=== PATIENT | female | born 1950 | race Caucasian/White ===

== ENCOUNTER 2024-04-11 00:04 | Inpatient (IN) ==
[2024-04-11] MEDS: 0.9 % SODIUM CHLORIDE 1,000 ML IV ONE (00:31)
[2024-04-11] MEDS: ONDANSETRON 4 MG/2 ML VIAL IV ONE (00:31)
[2024-04-11] MEDS: MECLIZINE 25 MG TABLET PO ONE (00:52)
[2024-04-11 00:57] LABS: Basophils # (Auto) 0.04 K/mcL (0.00-0.30); Basophils % (Auto) 0.9 % (0.0-2.0); Eosinophils # (Auto) 0.01 K/mcL (0.00-0.70); Eosinophils % (Auto) 0.2 % (0.0-7.0); Hematocrit 37.9 % (34.1-44.9); Hemoglobin 13.5 g/dL (11.2-15.7); Lymphocytes # (Auto) 0.88 K/mcL (1.50-4.80); Lymphocytes % (Auto) 20.7 % (15.5-49.0); Mean Cell Volume 82.4 fL (80.0-100.0); Mean Corpuscular HGB Conc 35.6 g/dL (31.0-36.0); Mean Platelet Volume 10.4 fL (8.8-12.5); Monocytes # (Auto) 0.82 K/mcL (0.10-0.90); Monocytes % (Auto) 19.3 % (1.0-12.0); Neutrophils % (Auto) 58.4 % (38.0-78.0); Platelet Count 191 K/mcL (140-440); Red Cell Distribution Width 15.3 % (11.5-14.5); WBC 4.3 K/mcL (4.5-11.0)
[2024-04-11 02:05] LABS: ALT/SGPT 32 U/L (<40); AST/SGOT 41 U/L (<32); Albumin 3.7 gm/dL (3.2-5.2); Albumin/Globulin Ratio 1.4 (1.0-2.3); Alkaline Phosphatase 84 U/L (39-117); Blood Urea Nitrogen 13 mg/dL (8-23); Calcium 8.4 mg/dL (8.6-10.4); Carbon Dioxide 18 mmol/L (22-30); Chloride 88 mmol/L (96-108); Globulin 2.6 gm/dL (2.2-3.7); Glomerular Filtration Rate 85; Glucose 105 mg/dL (70-105); Potassium 3.9 mmol/L (3.3-5.1); Sodium 120 mmol/L (133-145)
[2024-04-11] MEDS ORDERED: ACETAMINOPHEN 325 MG TABLET PO PRN (03:03)
[2024-04-11 03:09] LABS: Sodium 120 mmol/L (133-145)
[2024-04-11 04:18] LABS: Sodium, Urine Random 177 mmol/L
[2024-04-11 04:21] LABS: Osmolality,Urine 634 mOSM/kg (80-1000)
[2024-04-11] MEDS: ONDANSETRON 4 MG/2 ML VIAL IV PRN (05:18)
[2024-04-11] MEDS: 0.9 % SODIUM CHLORIDE 10 ML SYRINGE IV SCH (05:18)
[2024-04-11 06:00] LABS: Basophils # (Auto) 0.01 K/mcL (0.00-0.30); Basophils % (Auto) 0.3 % (0.0-2.0); Eosinophils # (Auto) 0 K/mcL (0.00-0.70); Eosinophils % (Auto) 0 % (0.0-7.0); Hematocrit 35.1 % (34.1-44.9); Hemoglobin 12.3 g/dL (11.2-15.7); Lymphocytes % (Auto) 11.7 % (15.5-49.0); Mean Cell Volume 84.2 fL (80.0-100.0); Mean Platelet Volume 10.1 fL (8.8-12.5); Monocytes # (Auto) 0.55 K/mcL (0.10-0.90); Monocytes % (Auto) 16.1 % (1.0-12.0); Neutrophils % (Auto) 71.3 % (38.0-78.0); Platelet Count 155 K/mcL (140-440); RBC 4.17 M/mcL (3.59-5.38); Red Cell Distribution Width 15.6 % (11.5-14.5); WBC 3.4 K/mcL (4.5-11.0)
[2024-04-11 06:18] LABS: Free T4 (Free Thyroxine) 0.75 ng/dL (0.93-1.70)
[2024-04-11 06:19] LABS: Thyroid Stimulating Hormone 2.63 uIU/mL (0.27-5.01)
[2024-04-11 06:24] LABS: ALT/SGPT 28 U/L (<40); AST/SGOT 35 U/L (<32); Albumin 3.4 gm/dL (3.2-5.2); Albumin/Globulin Ratio 1.5 (1.0-2.3); Alkaline Phosphatase 76 U/L (39-117); Bilirubin,Direct 0.4 mg/dL (<0.3); Bilirubin,Total 0.8 mg/dL (0.1-1.0); Blood Urea Nitrogen 12 mg/dL (8-23); Calcium 7.7 mg/dL (8.6-10.4); Carbon Dioxide 21 mmol/L (22-30); Chloride 88 mmol/L (96-108); Globulin 2.2 gm/dL (2.2-3.7); Glomerular Filtration Rate 89; Glucose 107 mg/dL (70-105); Lactate Dehydrogenase 191 U/L (135-225); Phosphorous 3.1 mg/dL (2.5-4.5); Potassium 4.1 mmol/L (3.3-5.1); Sodium 119 mmol/L (133-145); Triglycerides 48 mg/dL (<150); Uric Acid 3.2 mg/dL (2.5-8.0)
[2024-04-11] MEDS: ONDANSETRON 4 MG/2 ML VIAL ONE (06:30)
[2024-04-11] MEDS: MECLIZINE 25 MG TABLET PO PRN (06:45)
[2024-04-11] MEDS: PROCHLORPERAZINE 10 MG/2 ML VIAL IV PRN (07:53)
[2024-04-11] MEDS: SODIUM CHLORIDE 1 GM TABLET PO ONE (07:58)
[2024-04-11] MEDS: FUROSEMIDE 20 MG/2 ML VIAL IV SCH (08:04)
[2024-04-11] MEDS ORDERED: LEVOFLOXACIN 750 MG/150 ML BAG IV SCH (09:00)
[2024-04-11] MEDS: LEVOFLOXACIN 500 MG/100 ML BAG IV SCH (09:19)
[2024-04-11] MEDS: LEVOFLOXACIN 250 MG/50 ML BAG IV SCH (09:19)
[2024-04-11] MEDS: HEPARIN 5,000 UNIT/ML VIAL SQ SCH (09:20)
[2024-04-11] MEDS: IPRATROPIUM/ALBUTEROL 3 ML AMPUL.NEB NEB ONE (09:36)
[2024-04-11] MEDS: SODIUM CHLORIDE 3 % 100 ML IV ONE ×2 (11:01→17:39)
[2024-04-11] MEDS: SODIUM CHLORIDE 1 GM TABLET PO SCH ×2 (11:30→20:33)
[2024-04-11] MEDS: ALPRAZolam 0.5 MG TABLET PO PRN (11:36)
[2024-04-11 12:57] LABS: Sodium 119 mmol/L (133-145)
[2024-04-11] MEDS: URE NA PO SCH (20:33)
[2024-04-11] MEDS: DOCUSATE SODIUM 100 MG CAPSULE PO PRN (20:34)
[2024-04-11] MEDS: Progesterone Micronized 100 mg capsule PO SCH (20:41)
[2024-04-11] MEDS ORDERED: ALPRAZolam 0.5 MG TABLET PO SCH (21:00)
[2024-04-11 23:50] LABS: Sodium 124 mmol/L (133-145)
[2024-04-12 01:52] LABS: Sodium 125 mmol/L (133-145)
[2024-04-12 03:48] LABS: Sodium 126 mmol/L (133-145)
[2024-04-12 05:39] LABS: Basophils # (Auto) 0.01 K/mcL (0.00-0.30); Basophils % (Auto) 0.3 % (0.0-2.0); Eosinophils # (Auto) 0 K/mcL (0.00-0.70); Eosinophils % (Auto) 0 % (0.0-7.0); Hematocrit 39.1 % (34.1-44.9); Lymphocytes # (Auto) 0.68 K/mcL (1.50-4.80); Lymphocytes % (Auto) 21.5 % (15.5-49.0); Mean Corpuscular HGB Conc 35.8 g/dL (31.0-36.0); Mean Platelet Volume 10.3 fL (8.8-12.5); Monocytes # (Auto) 0.55 K/mcL (0.10-0.90); Monocytes % (Auto) 17.4 % (1.0-12.0); Neutrophils % (Auto) 60.5 % (38.0-78.0); Platelet Count 164 K/mcL (140-440); RBC 4.77 M/mcL (3.59-5.38); Red Cell Distribution Width 14.9 % (11.5-14.5); WBC 3.2 K/mcL (4.5-11.0)
[2024-04-12 05:56] LABS: ALT/SGPT 33 U/L (<40); AST/SGOT 46 U/L (<32); Albumin 3.6 gm/dL (3.2-5.2); Albumin/Globulin Ratio 1.5 (1.0-2.3); Alkaline Phosphatase 78 U/L (39-117); Bilirubin,Direct 0.4 mg/dL (<0.3); Bilirubin,Total 0.7 mg/dL (0.1-1.0); Blood Urea Nitrogen 20 mg/dL (8-23); Calcium 8.3 mg/dL (8.6-10.4); Carbon Dioxide 23 mmol/L (22-30); Chloride 93 mmol/L (96-108); Globulin 2.4 gm/dL (2.2-3.7); Glomerular Filtration Rate 85; Glucose 135 mg/dL (70-105); Lactate Dehydrogenase 223 U/L (135-225); Potassium 3.9 mmol/L (3.3-5.1); Sodium 127 mmol/L (133-145); Triglycerides 81 mg/dL (<150); Uric Acid 3.8 mg/dL (2.5-8.0)
[2024-04-12 07:48] LABS: Sodium 127 mmol/L (133-145)
[2024-04-12] MEDS: THYROID, PORK 60 MG TABLET PO SCH (09:27)
[2024-04-12] MEDS: OLMESARTAN MEDOXOMIL 20 MG TABLET PO SCH (09:27)
[2024-04-12] MEDS: LEVOFLOXACIN 750 MG TABLET PO SCH (09:27)
[2024-04-12] MEDS: FUROSEMIDE 20 MG TABLET PO ONE (10:22)
[2024-04-12] MEDS ORDERED: DEXTROSE 31 GM ORAL.SUSP PO PRN (13:09)
[2024-04-12] MEDS ORDERED: DEXTROSE 50% 50 ML VIAL IV PRN (13:09)
[2024-04-12] MEDS ORDERED: 0.9 % SODIUM CHLORIDE 1,000 ML IV SCH (13:15)
[2024-04-12] MEDS: INSULIN LISPRO 1 UNIT/0.01 ML UNIT SQ SCH (15:58)
[2024-04-12] MEDS: POTASSIUM CHLORIDE 10 MEQ TABLET PO SCH (17:21)
[2024-04-12] MEDS ORDERED: POLYETHYLENE GLYCOL 3350 17 GM PACKET PO PRN (20:56)
[2024-04-13] MEDS: LACTULOSE 20 GM/30 ML ORAL.SOL PO PRN (00:19)
[2024-04-13] MEDS: LACTULOSE 20 GM/30 ML ORAL.SOL ONE (04:28)
[2024-04-13] MEDS ORDERED: BLOOD GLUCOSE SENSOR SCH (07:00)
[2024-04-13 07:05] LABS: ALT/SGPT 30 U/L (<40); AST/SGOT 39 U/L (<32); Albumin 3.4 gm/dL (3.2-5.2); Albumin/Globulin Ratio 1.5 (1.0-2.3); Alkaline Phosphatase 71 U/L (39-117); Bilirubin,Direct 0.3 mg/dL (<0.3); Bilirubin,Total 0.6 mg/dL (0.1-1.0); Blood Urea Nitrogen 29 mg/dL (8-23); Calcium 8.4 mg/dL (8.6-10.4); Carbon Dioxide 23 mmol/L (22-30); Chloride 94 mmol/L (96-108); Globulin 2.3 gm/dL (2.2-3.7); Glomerular Filtration Rate 72; Glucose 238 mg/dL (70-105); Lactate Dehydrogenase 234 U/L (135-225); Phosphorous 3.1 mg/dL (2.5-4.5); Potassium 3.8 mmol/L (3.3-5.1); Sodium 129 mmol/L (133-145); Triglycerides 103 mg/dL (<150); Uric Acid 4.1 mg/dL (2.5-8.0)
[2024-04-13 07:37] LABS: Basophils # (Auto) 0.01 K/mcL (0.00-0.30); Basophils % (Auto) 0.4 % (0.0-2.0); Eosinophils # (Auto) 0 K/mcL (0.00-0.70); Eosinophils % (Auto) 0 % (0.0-7.0); Hematocrit 38.4 % (34.1-44.9); Hemoglobin 13.5 g/dL (11.2-15.7); Lymphocytes # (Auto) 0.87 K/mcL (1.50-4.80); Lymphocytes % (Auto) 35.1 % (15.5-49.0); Mean Cell Volume 84.4 fL (80.0-100.0); Mean Corpuscular HGB Conc 35.2 g/dL (31.0-36.0); Mean Platelet Volume 11.1 fL (8.8-12.5); Monocytes # (Auto) 0.67 K/mcL (0.10-0.90); Neutrophils % (Auto) 37.1 % (38.0-78.0); Platelet Count 162 K/mcL (140-440); RBC 4.55 M/mcL (3.59-5.38); Red Cell Distribution Width 15.7 % (11.5-14.5); WBC 2.5 K/mcL (4.5-11.0)
[2024-04-13] MEDS: INSULIN GLARGINE, HUMAN 1 UNIT/0.01 ML SQ SCH (09:31)
[2024-04-13] MEDS: SENNOSIDES 1 TABLET PO SCH (09:32)
[2024-04-13] MEDS: SODIUM CHLORIDE 1 GM TABLET PO SCH (10:52)
== END 2024-04-13 11:14 | disposition home or self-care (01) | DRG 643 ==
LOC: ED 00:04 → ICU 03:07
PROVIDERS: ADMIT Student in an Organized Health Care Education/Training Program; ATTEND Internal Medicine